=== PATIENT | female | born 1945 | race Caucasian/White ===

== ENCOUNTER 2016-03-23 09:00 | Day surgery (SDC) | payer MEDICARE, OTHER ==
[~2016-03-23] VITALS: Ht 152.4 cm; Wt 99.8 kg
[~2016-03-23 09:00] MED LIST: 0.9% Sodium Chloride 1,000 ML IV SCH; ASA/1TAB6 PO; DICY10CA56 PO; OMEP20CA11 PO; Sodium Chloride LOK Flush 10 mL Syringe IV PRN; fentaNYL-PF 50 mCg/mL 2 mL Inj IVPUSH PRN
[2016-03-23 09:57] VITALS: BP 122/57; PULSE 71; O2SAT 96
[2016-03-23 10:38] VITALS: BP 130/68; PULSE 71; RESP 16; O2SAT 95
[2016-03-23 10:40] VITALS: BP 115/43; PULSE 71; RESP 16; O2SAT 94
[2016-03-23 10:50] VITALS: BP 112/56; PULSE 70; RESP 16; O2SAT 92
--- NOTE | 2016-03-23 11:07 | ENDO ---
[address] [address] ENDOSCOPY PROCEDURE PATIENT: BARON WEEMS : 1945 MR#: [id number] ADMIT: 03/23/2016 JOB ID: [id number] DATE OF SERVICE: 03/23/2016 PROCEDURE PERFORMED: Colonoscopy. INDICATIONS: Perianal pruritis, rectal bleeding and right flank pain. ASA CLASSIFICATION: The patient's ASA classification is II. MALLAMPATI SCORE: Mallampati score was 2. MEDICATIONS: 1. Versed 5 mg. 2. Fentanyl 100 mcg. INSTRUMENT USED: PCF-H190L. PREPARATION QUALITY: Fair. PROCEDURE DETAILS: After informed consent was obtained, the patient was brought into the GI suite, where she was placed on oxygen via nasal cannula and monitored with continuous pulse oximeter, telemetry, and blood pressure monitoring. A time-out was performed. Then, she was placed in the left lateral decubitus position and medications were administered for sedation. Digital rectal exam was performed which was unremarkable. The colonoscope was then inserted into the rectum and advanced under direct visualization to the cecum, which was identified by the presence of the ileocecal valve and appendiceal orifice. Once the cecum was reached, the colonoscope was withdrawn back into the rectum, as the mucosa and lumen were examined. In the rectum, retroflexion was performed. Following retroflexion, remaining air in the rectum was suctioned, and procedure was completed. FINDINGS: 1. In the cecum there was an approximately 4 mm sessile polyp that was removed with a cold snare. 2. In the cecum as well there was an approximately 4-5 mm AVM not actively bleeding. The AVM was not treated, as the patient is not anemic. 3. In the sigmoid colon there was an approximately 7 mm sessile polyp that was removed with a hot snare. 4. In the rectum there was an approximately 5 mm polyp that was removed with a hot snare. 5. Scattered diverticula were seen throughout the sigmoid colon. 6. Retroflexed views in the rectum revealed small internal hemorrhoids. IMPRESSION: 1. Cecal arteriovenous malformation. 2. Cecal polyp. 3. Sigmoid polyp. 4. Rectal polyp. 5. Scattered sigmoid diverticula. 6. Small internal hemorrhoids. RECOMMENDATIONS: 1. Fiber-rich diet. 2. Avoid NSAIDs and anticoagulants for 72 hours. 3. Follow up in GI clinic. COMPLICATIONS: None. ESTIMATED BLOOD LOSS: Less than 5 mL.
--- NOTE | 2016-03-24 11:14 | PATH ---
SURGICAL PATHOLOGY Attending Physician:Dipika Saldivar CASE STATUS: Signed Out PATIENT NAME: BARON WEEMS PID: [id number] : 1945 DATE COLLECTED:03/23/2016 15:32 SPECIMEN: 1: Colon, Biopsy 2: Colon, Biopsy 3: Rectum, Biopsy CLINICAL HISTORY: A: CECAL POLYP B: SIGMOID POLYP C: RECTAL POLYP FINAL DIAGNOSIS: 1.CECAL POLYP: TUBULAR ADENOMA. 2.SIGMOID COLON POLYP: HYPERPLASTIC POLYP INVOLVING BOTH BIOPSY FRAGMENTS. 3.RECTAL POLYP: HYPERPLASTIC POLYP. ICD10 CODE D12.0 GROSS DESCRIPTION: The specimen is received in three formalin filled containers labeled with the patient's name. 1). The specimen is sublabeled "cecal polyp" and consists of a 0.2 x 0.2 x 0.1 CM portion of tissue which is entirely submitted in cassette 1A. 2). The specimen is sublabeled "sigmoid polyp" and consists of 2 portions of tissue which aggregate to 0.5 x 0.5 x 0.4 CM. The specimen is entirely submitted in cassette 2A. 3). The specimen is sublabeled "rectal polyp" and consists of a 0.4 x 0.4 x 0.4 CM portion of tissue which is entirely submitted in cassette 3A. 03/23/2016 DAC MICRO DESCRIPTION: See diagnosis. ICD-9 CODES: CPT CODES: 1: 60747 2: 33952 3: 02080 Electronically Signed Out James Canchola MD [facility] [address], [place] [address] Technical component performed at [facility], [facility] [address], [place], [address]
== END 2016-03-23 23:59 | disposition home or self-care (01) ==
LOC: END 09:00
PROVIDERS: ATTEND Internal Medicine Gastroenterology
DX: D12.0 Benign neoplasm of cecum (principal); K63.5 Polyp of colon; K62.1 Rectal polyp; K57.30 Diverticulosis of large intestine without perforation or abscess without bleeding; K64.8 Other hemorrhoids; K21.9 Gastro-esophageal reflux disease without esophagitis; G47.30 Sleep apnea, unspecified; E66.9 Obesity, unspecified
CPT/HCPCS: 45385; 88305; J2250; J7030